=== PATIENT | male | born 1990 | race American Indian/Alaskan Native ===

== ENCOUNTER 2017-05-06 08:01 | Outpatient (CLI) | payer OTHER ==
--- NOTE | 2017-05-06 08:20 | XRay Report ---
Right knee: Pain. Standing views demonstrate hardware from cruciate ligament repair. Mild periarticular spurs are identified involving both medial and lateral compartments. The joint spaces are preserved and there is good alignment. The articular surfaces appeared generally smooth. There is a question of several small loose bodies in the lateral joint compartment. There is no swelling and no effusion. No prior exam for comparison. Impression: 1. Questionable loose bodies in lateral compartment. 2. Cruciate ligament repair with mild periarticular spurring consistent with degenerative change.
== END 2017-05-06 08:02 | disposition home or self-care (01) ==
LOC: SPVIMAG 08:01
PROVIDERS: ATTEND Orthopaedic Surgery
DX: M25.861 Other specified joint disorders, right knee (principal); M25.561 Pain in right knee; Z98.890 Other specified postprocedural states